=== PATIENT | male | born 1975 | race Caucasian/White ===

== ENCOUNTER 2019-02-03 11:30 | Observation (INO) | payer OTHER, SELFPAY ==
[2019-01-05 13:58] VITALS: BMI 30.9
--- NOTE | 2019-02-02 23:10 | HP.PCM_ITS ---
History and Physical Date of Admission: 02/03/19 HISTORY OF PRESENT ILLNESS 43 year old man presents for evaluation of hidradenitis with a recent flare-up in his right axilla. He had an I&D procedure in the office and was placed on Bactrim, and it has improved. He has had hidradenitis for several years. It mostly affects his right axilla and right inguinal area. At the present time he states his right axilla hurts more than his right inguinal area. He denies fever. He denies trauma. 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 He presents at this time for further evaluation and treatment. PAST MEDICAL HISTORY Kidney disease Recurrent infections Vitamin deficiency High blood pressure PAST SURGICAL HISTORY None ALLERGIES No Known Allergies MEDICATIONS aspirin clonidine doxazosin ergocalciferol (vitamin D2) famotidine hydralazine metoprolol tartrate potassium chloride ER simvastatin sulfamethoxazole 800 mg-trimethoprim 160 mg FAMILY HISTORY Mother - Diabetes, Breast cancer, Hypertension, Kidney disease Father - Heart disease, Hypertension, Respiratory disease SOCIAL HISTORY Smoking Status: Current every day smoker alcohol intake: current substance use type: marijuana REVIEW OF SYSTEMS General - Denies fever, fatigue, and weight loss. Eyes - Denies cataracts and glaucoma. ENT - Denies nasal congestion and sore throat. Endocrine - Denies excessive thirst and urination. Skin - Denies skin cancer. Has recent flare up of hidradenitis in his right axillary area. Has hidradenitis right inguinal area that is stable at this time. Musculoskeletal - Denies joint pain, joint stiffness, weakness of muscles and joints, back pain, and arthritis. Neuro - Denies headaches. Cardiovascular - Has chest pain. Denies fatigue, and shortness of breath with exertion. Psych - Denies anxiety and depression. Respiratory - Denies chronic cough and shortness of breath. Has sleep apnea. Patient is a smoker. Gastrointestinal - Denies nausea, vomiting, diarrhea. Has constipation. Hematologic - Denies abnormal bruising and bleeding. Genitourinary - Denies hematuria. Has urinary frequency. PHYSICAL EXAMINATION General - Alert and Oriented. HEENT - PERRL. EOMI. Throat is clear. Neck - Supple and nontender. No cervical adenopathy. Lungs - Clear to auscultation. Heart - Regular rate and rhythm. Abdomen - Soft and nondistended. Extremities - FROM. No axillary adenopathy. Radial pulses are palpable. In the right axillary area is hidradenitis with induration, redness, and tenderness. No fluctuance. No purulent drainage. Measures 5 cm. In the right inguinal area is hidradenitis with mild induration and no redness. Mild tenderness to palpation. No fluctuance. No purulent drainage. Measures 5 cm. Neuro - CN II-XII grossly intact. Psych - Normal mood and affect. ASSESSMENT 1. Right axillary hidradenitis. 2. Right inguinal hidradenitis, stable. 3. Smoker. PLAN Recommend operative intervention with excision of his hidradenitis. The right axilla is more symptomatic at this time and will be excised first. Tissue from surgery will be sent to Pathology for analysis to rule out carcinoma and to Microbiology for culture. A positive culture will necessitate antibiotic therapy. Will leave the wound open initially and start wound care with Silver or with the VAC. Usually in 4-6 weeks, the wound is superficial enough to heal a skin graft. Discussed with the patient about leaving the wound open and proceeding with wound closure in a delayed fashion with a skin graft. For this surgery, it will be under general anesthesia with a surgical observation overnight stay in the hospital. There will be a compression dressing or device to keep the graft stable during the healing process. Tentatively, I estimate him being off work for 2 months. Continue Bactrim antibiotics for his intermittent flare ups. Patient was informed of the risks and complications of the procedure including alternatives to surgery. These were discussed with the patient personally. Patient voices understanding and wishes to proceed. Some of the risks and complications were included in a form from the [employer]. Encouraged patient to stop smoking as it may have deleterious effects on wound healing.
[2019-02-03] VITALS (13 sets, daily range): BP systolic 109–156; BP diastolic 69–99; PULSE 50–67; RESP 16; TEMP 36.4–37.1; O2SAT 95–99; BMI 33.3
--- NOTE | 2019-02-03 | HID_PTH ---
PATIENT: BABAK ANDREWS LOC: [facility]3 U#:[id number] AGE/SX: 43/M ROOM: UT321 RE02/03/[address]: Dr. Chemo Barba MD : 1975 BED: 1 DIS: 02/04/2019 SPEC #: [id number] RECD: 02/03/19 14:45 STATUS: ASHWINI REQ #: [id number] COLEEN: 02/03/19 00:[address]: Chemo Barba DEPT: SURGICAL PATHOLOGY RECD BY: Eusebio Mclean ENTERED: 02/03/19 14:46 SP TYPE: Julian CHILEL DR: Dr. Carly Valderrama MD Tissues: Axilla, NOS Procedures: Surgery Specimen Level III HEADER OPERATION: Excision hidradenitis axilla PRE-OP DIAGNOSIS: Right axillary hidradenitis TISSUE SUBMITTED: Right axillary hidradenitis MICROSCOPIC DIAGNOSIS Skin and soft tissue of right axilla, excision: Consistent with hidradenitis. AM:ad 02/06/19 MICROSCOPIC DESCRIPTION Slides are reviewed. GROSS DESCRIPTION Received in fixative is one container labeled with the patient's name and designated right axillary hidradenitis. The specimen consists of an irregular fragment of pink-osullivan skin with attached yellow fatty tissue measuring 6.3 x 6 cm and depth of excision measuring 2 cm. Serial sections do not reveal mass lesions. The cut surfaces are yellow-reddish in color and consistent with hidradenitis. Real Estate Teacher sections are submitted in three cassettes. / AM:ad 02/03/19 TC:2 CPT: 82324
[2019-02-03] MEDS: Lactated Ringers 1,000 ML 100 ML IV (10:01)
[2019-02-03] MEDS: Cefazolin 2 GM in 0.9% Normal Saline 100 ML IV (10:39)
--- NOTE | 2019-02-03 11:24 | PCM.OPRPT ---
Report of Operation Date of Procedure: 02/03/19 Pre-Operative Diagnosis: 1. Right axillary hidradenitis. 2. Right inguinal hidradenitis, stable. 3. Smoker. Post-Operative Diagnosis: Same. Surgery/Procedure Performed:: Surgical preparation right axilla with excision hidradenitis (54 cm2). Description of Surgical Findings:: 43 year old man presents for evaluation of hidradenitis with a recent flare-up in his right axilla. He had an I&D procedure in the office and was placed on Bactrim, and it has improved. He has had hidradenitis for several years. It mostly affects his right axilla and right inguinal area. At the present time he states his right axilla hurts more than his right inguinal area. He denies fever. He denies trauma. 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 Patient was informed of the risks and complications of the procedure including alternatives to surgery. These were discussed with the patient personally. Patient voices understanding and wishes to proceed. Some of the risks and complications were included in a form from the [employer] Encouraged patient to stop smoking as it may have deleterious effects on wound healing. Size of defect right axilla - 9 x 6 x 3 cm. general utility machine operator: None Type of Anesthesia:: General Specimen's removed: Right axillary hidradenitis to Pathology and Microbiology. Drains: None. Estimated Blood Loss (mL): 50 ml. Description of Procedure: Patient was taken to OR in supine position and was placed under general anesthesia. The right axilla was prepped and draped in the usual fashion. SCD's were placed for DVT prophylaxis. Perioperative antibiotics were given intravenously. Using a scalpel, I proceeded with surgical preparation of the right axilla with excision of his hidradenitis. No purulent drainage was seen. In the subcutaneous tissue, there was extensive fat necrosis. There was indurated scar tissue extending down to the muscle that was excised. Some of the tissue was sent to Pathology for analysis to rule out carcinoma and to Microbiology for culture. A positive culture will necessitate antibiotic therapy. The wound was irrigated with saline. Hemostasis was obtained with electrocautery. The size of the defect right axilla after excision hidradenitis was 9 x 6 x 3 cm or 54 cm2. The wound was dressed with Mepitel nonadherent dressing followed by Kerlix gauze and Betadine followed by dry Kerlix gauze followed by ABD pads and compression CAT wrap. Patient tolerated the procedure well and was sent to PACU in satisfactory condition. Patient will be sent upstairs for continued postop care. The VAC will be applied tomorrow. Grafts/Implants Used: None. - Complications None. - Admit VTE Documentation VTE Present on Admission: No VTE Mechan Device Prophylaxis: SCD's VTE Pharm Prophylaxis ordered?: No Code Visit Surgery Charges CPT - 43337 ICD-10 - L73.2, S41.101A, F17.200
[2019-02-03] MEDS: Lactated Ringers 1,000 ML 60 ML IV (12:04)
[2019-02-03] MEDS: oxyCODONE 5 MG Tablet 10 MG PO ×2 (14:05→21:03)
[2019-02-03] MEDS: hydrALAZINE 50 MG Tablet 100 MG PO ×2 (14:06→21:04)
--- NOTE | 2019-02-03 14:15 | CASEMGMT ---
TOMMIE SUTHERLAND updated that patient will need HHC for wound vac dressing changes. TOMMIE SUTHERLAND in to discuss HHC with patient and provided list of in-network HHC agencies. Patient's first choice is [facility]. TOMMIE SUTHERLAND sent referral to [facility] and they are able to accept the patient. TOMMIE SUTHERLAND updated patient, who voiced understand and denied further needs or questions. TOMMIE SUTHERLAND updated wound nurse.
[2019-02-03] MEDS: cloNIDine HCl 0.2 MG Tablet 0.3 MG PO ×2 (14:57→21:05)
--- NOTE | 2019-02-03 15:22 | NURSING ---
Wound VAC approved. home VAC placed in the room. pt hoping to be discharged home tomorrow.
[2019-02-03] MEDS: Furosemide 40 MG Tablet 60 MG PO (17:35)
[2019-02-03] MEDS: Cefazolin 1 GM/50 ML BAG IV (18:20)
[2019-02-03] MEDS: Famotidine 20 MG Tablet PO (21:04)
[2019-02-03] MEDS: Atorvastatin Calcium 10 MG Tablet PO (21:05)
[2019-02-03] MEDS: Doxazosin 4 MG Tablet 8 MG PO (21:06)
[2019-02-03] MEDS: Metoprolol Tartrate 100 MG Tablet PO (21:06)
[2019-02-03] MEDS: Docusate Sodium 100 MG Capsule PO (21:06)
[2019-02-04] MEDS: cloNIDine HCl 0.2 MG Tablet 0.3 MG PO ×3 (01:48→13:39)
[2019-02-04] MEDS: Cefazolin 1 GM/50 ML BAG IV ×2 (01:48→11:00)
[2019-02-04 06:00] VITALS: BP 122/66; PULSE 65; RESP 16; TEMP 36.6; O2SAT 96
[2019-02-04 06:11] VITALS: PULSE 65
[2019-02-04] MEDS: Lactated Ringers 1,000 ML 60 ML IV (06:11)
[2019-02-04] MEDS: hydrALAZINE 50 MG Tablet 100 MG PO (06:11)
[2019-02-04 07:19] LABS: Hematocrit 41.6 % (40-54); Hemoglobin 13.4 g/dL (13.0-16.5); Mean Corp Hgb Conc 32.2 g/dL (32-36); Mean Corpuscular Hgb 31.6 pg (27.0-32.0); Mean Corpuscular Volume 98.1 fL (80-94); Mean Platelet Vol. 10.2 fl (6.2-12.0); Platelet Count 194 K/mm3 (150-450); RBC Distribution Width CV 13.7 % (11.6-14.6); RBC Distribution Width SD 49.5 fl (35.1-43.9); Red Blood Count 4.24 M/mm3 (4.6-6.2)
[2019-02-04 07:41] LABS: Anion Gap 8 (5-15); BUN 32 mg/dL (7-18); BUN/Creat Ratio 18.3 RATIO (10-20); Calcium,Total 8.5 mg/dL (8.5-10.1); Chloride 103 mmol/L (98-107); Creatinine, Serum 1.75 mg/dL (0.70-1.30); EST Glomerular Filtration Rate 45 mL/min (>60); Est Glom Filt Rate - Afr Amer 55 mL/min (>60); Estimated Creatinine Clearance 49.12 ml/min; Glucose 124 mg/dL (74-106); Potassium 3.7 mmol/L (3.5-5.1); Prealbumin 33.5 mg/dL (20.0-40.0); Sodium Level 139 mmol/L (136-145)
[2019-02-04 08:28] VITALS: BP 149/83; PULSE 62; RESP 16; TEMP 36.7; O2SAT 94
[2019-02-04 08:48] VITALS: PULSE 62
[2019-02-04] MEDS: Pantoprazole Sodium 20 MG Tablet PO (08:48)
[2019-02-04] MEDS: Allopurinol 100 MG Tablet PO (08:48)
[2019-02-04] MEDS: dilTIAZem CD 240 MG Capsule PO (08:48)
[2019-02-04] MEDS: Docusate Sodium 100 MG Capsule PO (08:48)
[2019-02-04] MEDS: Metoprolol Tartrate 100 MG Tablet PO (08:48)
[2019-02-04] MEDS: Famotidine 20 MG Tablet PO (08:48)
[2019-02-04] MEDS: Smz/Tmp Ds Tablet 1 TABLET PO (08:49)
[2019-02-04] MEDS: Furosemide 40 MG Tablet 60 MG PO (08:49)
[2019-02-04] MEDS: HYDROmorphone 1 MG/ML Syringe IV (10:56)
[2019-02-04] MEDS: 0.9% Saline Lock 10 ML Syringe IV (10:56)
[2019-02-04 13:31] VITALS: BP 124/67; PULSE 55; RESP 16; TEMP 36.7; O2SAT 96
[2019-02-04 13:40] VITALS: PULSE 55
--- NOTE | 2019-02-04 14:11 | PN.SURG_ITS ---
Subjective: Postop #1 Patient is resting comfortably. VAC applied today. VAC has been approved. - Physical Exam Vitals/I&O's: Vital Signs Temp Pulse Resp BP Pulse Ox 98.0 F 55 L 16 124/67 H 96 02/04/19 13:31 02/04/19 13:40 02/04/19 13:31 02/04/19 13:31 02/04/19 13:31 Oxygen Delivery Method Room Air Weight: 206 lb 2.115 oz Body Mass Index (BMI) 33.3 Intake and Output for Last 24 Hours 02/02/19 02/03/19 02/04/19 23:59 23:59 23:59 Intake Total 1936 / 2536 2724 / 2724 Output Total 600 / 600 Balance 1336 / 1936 2724 / 2724 General: Alert, Oriented x3 HEENT: PERRLA, EOMI Oral: Moist Mucosa Neck: Supple Abdomen: Soft, Non-Distended Skin: Ulcer/ Wound - right axillary wound stable. No active bleeding seen. VAC applied today. Neurological: Cranial nerves II-XII grossly intact Psych/Mental Status: Normal Affect, Appropriate Microbiology Past 72 Hours 02/03/19 Unknown Tissue - Other Gram Stain - Final 02/03/19 Unknown Tissue - Other Wound Culture - Preliminary No growth-Final to follow Laboratory Results 02/04/19 06:44: Sodium 139, Potassium 3.7, Chloride 103, Carbon Dioxide 28.0, Anion Gap 8, BUN 32 H, Creatinine 1.75 H, Estim Creat Clear Calc 49.12, Est GFR (MDRD) Af Amer 55 L, Est GFR (MDRD) Non-Af 45 L, BUN/Creatinine Ratio 18.3, Glucose 124 H, Calcium 8.5, Prealbumin 33.5 02/04/19 06:44: WBC 7.0, RBC 4.24 L, Hgb 13.4, Hct 41.6, MCV 98.1 H, MCH 31.6, MCHC 32.2, RDW Std Deviation 49.5 H, RDW Coeff of Kavitha 13.7, Plt Count 194, MPV 10.2 Current Medications [facility]) [facility] Last Admin: 02/04/19 08:48 Dose: 100 mg Documented by: Atorvastatin Calcium (Lipitor) 10 mg PO QHS ON LICENSE OF [facility] Last Admin: 02/03/19 21:05 Dose: 10 mg Documented by: Clonidine (Catapres) 0.3 mg PO 0200,0600,1400,2000 ON LICENSE OF [facility] Last Admin: 02/04/19 13:39 Dose: 0.3 mg Documented by: Diazepam (Valium) 5 mg PO 4X/DAY PRN PRN PRN Reason: SPASMS Diltiazem HCl (Cardizem Cd) 240 mg PO DAILY ON LICENSE OF [facility] Last Admin: 02/04/19 08:48 Dose: 240 mg Documented by: Docusate Sodium (Colace) 100 mg PO BID ON LICENSE OF [facility] Last Admin: 02/04/19 08:48 Dose: 100 mg Documented by: Doxazosin Mesylate (Cardura) 8 mg PO QHS ON LICENSE OF [facility] Last Admin: 02/03/19 21:06 Dose: 8 mg Documented by: Ergocalciferol (Vitamin D) 100,000 unit PO QWEEK ON LICENSE OF [facility] Famotidine (Pepcid) 20 mg PO BID ON LICENSE OF [facility] Last Admin: 02/04/19 08:48 Dose: 20 mg Documented by: Furosemide (Lasix) 60 mg PO 1000,1800 ON LICENSE OF [facility] Last Admin: 02/04/19 08:49 Dose: 60 mg Documented by: Hydralazine HCl (Apresoline) 100 mg PO TID ON LICENSE OF [facility] Last Admin: 02/04/19 13:40 Dose: Not Given Documented by: Hydromorphone HCl (Dilaudid Inj) 1 mg IV Q3H PRN PRN PRN Reason: Pain Score 6-10/10 Last Admin: 02/04/19 10:56 Dose: 1 mg Documented by: Cefazolin Sodium () 1 gm in 50 mls @ 100 mls/hr IV Q8H ON LICENSE OF [facility] Last Infusion: 02/04/19 11:30 Dose: Infused Documented by: Lactated Ringer's () 1,000 mls @ 60 mls/hr IV .[id number] ON LICENSE OF [facility] Last Infusion: 02/04/19 11:30 Dose: Infused Documented by: Metoprolol Tartrate (Lopressor (Beta Rodriguez)) 100 mg PO BID ON LICENSE OF [facility] Last Admin: 02/04/19 08:48 Dose: 100 mg Documented by: Nutritional Formula (Cullen - Wynona Flavor) 1 packet PO BIDCM ON LICENSE OF [facility] Last Admin: 02/04/19 08:49 Dose: 1 packet Documented by: Ondansetron HCl (Zofran) 4 mg IV Q6H PRN PRN PRN Reason: NAUSEA Oxycodone HCl (Oxyir) 10 mg PO Q4H PRN PRN PRN Reason: Pain Score 6-10/10 Last Admin: 02/03/19 21:03 Dose: 5 mg Documented by: Pantoprazole Sodium (Protonix) 20 mg PO DAILY ON LICENSE OF [facility] Last Admin: 02/04/19 08:48 Dose: 20 mg Documented by: Potassium Chloride (K-Dur) [facility] Last Admin: 02/04/19 08:48 Dose: 10 meq Documented by: Promethazine HCl (Phenergan Tablet) 25 mg PO Q4H PRN PRN PRN Reason: NAUSEA/VOMITING Sodium Chloride () 10 - 40 ml IV UD PRN PRN Reason: SALINE FLUSH Last Admin: 02/04/19 10:56 Dose: 10 ml Documented by: Trimethoprim/Sulfamethoxazole (Bactrim Ds) 1 tablet [facility] Last Admin: 02/04/19 08:49 Dose: 1 tablet Documented by: Medical Necessity - Tobacco Use Smoking Status: Current every day smoker Tobacco Use: Cigarettes Assessment/Plan 1. Right axillary hidradenitis. 2. Right inguinal hidradenitis, stable. 3. Smoker. 4. s/p surgical preparation right axilla with excision hidradenitis (54 cm2). 5. Chronic kidney disease. Right axillary wound is stable. No active bleeding seen. VAC applied today. To be changed three times per week at 150 mmHg continuous suction. Home Health to assist. VAC has been approved. Tolerating po analgesia. Operative culture is negative thus far. Will send home on Doxycycline. A positive culture will necessitate antibiotic therapy. Prealbumin was 33.5. Encourage nutritional supplementation with protein to help the healing process. Creatinine is 1.75. Patient has chronic kidney disease. He states he recently saw his Physical Sciences Professor about a month ago. I instructed him to call their office next week to update them on the labs from this surgery. Will also repeat the BMP in a week. Discharge home today. Followup at [facility] Center on Wednesday02/13/19. Wrote script for Doxycycline. Wrote script for Phenergan for nausea (30 tabs) and a refill. Wrote scripts for Percocet for pain (40 tabs) and for Valium for spasm (30 tabs). Encouraged patient to stop smoking as it may have deleterious effects on wound healing.
--- NOTE | 2019-02-04 14:18 | DCINST_ITS ---
You will use the following diet at home:: No restrictions, Other - encourage nutritional supplementation with protein to help the healing process. Discharge Activity: May not drive while taking narcotic pain medications., May Shower - on the days the vac is changed., - - no heavy lifting. keep right arm elevated. May shower in (days): 2 - may shower on the days the vac is changed. May resume sexual activity in: No Restrictions Weight Bearing Status: Weight bearing as tolerated Lifting Restrictions: 20 lbs. Keep extremity elevated above heart level: Right Arm Call your doctor if your incision/area has: Continuous Slow Oozing, Sudden Increased Bleeding, Increased Pain/ Swelling, Increased Redness, Foul Smelling Discharge, Swelling at the incision site Call your doctor if you observe: Fever of 101 or Higher, Coldness, Increased Pain, Shortness of breath, Chest pain, Calf discomfort, Uncontrolled pain Suture Line Care: - - vac dressing changes three times per week at 150 mmHg continuous suction. Change Dressing in (Days):: 2 - vac changes three times per week. Cleanse incision/area with: Soap & Water - may cleanse the wound on the days the vac is changed., - - may shower on the days the vac is changed. Additional Dressing/Incision Instructions:: Home Health to assist with vac changes three times per week at 150 mmHg continuous suction. May cleanse the wound with soap and water at the time of the vac dressing change. Additional Instructions: Patient had a Creatinine of 1.75 in the hospital. He states he sees a Materials Assistant. Instructed him to call their office on 02/06/19, and give them the results of the Creatinine from this hospitalization. Allergies/Adverse Reactions: Allergies No Known Allergies Allergy (Verified 01/27/19 11:15) Medications to take at Discharge aspirin 81 mg tablet,delayed release 81 mg PO DAILY 01/05/19 clonidine HCl 0.3 mg tablet 0.3 mg PO Q6H tab 01/05/19 doxazosin 8 mg tablet 8 mg PO DAILY 01/05/19 ergocalciferol (vitamin D2) 50,000 unit capsule 100,000 unit PO QWEEK cap 01/05/19 famotidine 20 mg tablet 20 mg PO BID 01/05/19 hydralazine 100 mg tablet 100 mg PO TID tab 01/05/19 metoprolol tartrate 100 mg tablet 100 mg PO BID 01/05/19 potassium chloride ER 10 mEq tablet,extended release 10 meq PO DAILY 01/05/19 simvastatin 20 mg tablet 20 mg PO QHS 01/05/19 sulfamethoxazole 800 mg-trimethoprim 160 mg tablet 1 tab PO DAILY tab 01/05/19 Allopurinol [Zyloprim] 100 mg PO DAILYCM 01/27/19 Diltiazem HCl [Diltiazem 24Hr ER (Cd)] 240 mg PO DAILY 01/27/19 Docusate Sodium [Colace] 100 mg PO DAILY 01/27/19 Furosemide [Lasix] 60 mg PO BID 01/27/19 Omeprazole [Prilosec] 20 mg PO DAILY 01/27/19 Diazepam [Valium] 5 mg PO 4X/DAY PRN PRN #30 tab 02/04/19 Doxycycline [Vibramycin] 100 mg PO BID #60 cap 02/04/19 Oxycodone HCl/Acetaminophen [Percocet 5/325] 1 tab PO Q4H PRN PRN 7 Days #40 tab 02/04/19 proMETHazine tablet [Phenergan tablet] 25 mg PO 4X/DAY PRN PRN #30 tab 02/04/19 The following prescriptions were given: Oxycodone HCl/Acetaminophen [Percocet 5/325] 1 tab PO Q4H PRN PRN 7 Days #40 tab PRN Reason: Pain Score 4-5/10 Prescription Printed proMETHazine tablet [Phenergan tablet] 25 mg PO 4X/DAY PRN PRN #30 tab PRN Reason: Nausea/Vomiting Prescription Printed Diazepam [Valium] 5 mg PO 4X/DAY PRN PRN #30 tab PRN Reason: Spasms Prescription Printed Doxycycline [Vibramycin] 100 mg PO BID #60 cap Prescription Printed Orders to be completed after discharge: Basic Metabolic Profile (BMP) Time Frame: 1 Week, Facility: [facility], Location: [facility] Primary Care Physician: Carly Valderrama [Primary Care Provider] - Test Results: Test results from this visit will be discussed in further detail at your follow- up appointment, if applicable. Please Follow Up With: Chemo Barba MD When: wednesday02/13/[address] [facility]. call [phone] for appt. Proposed Discharge Date: 02/04/19
== END 2019-02-04 14:55 | disposition home health service (06) ==
LOC: SDC 12:51 → MS3 12:51
PROVIDERS: Admitting Provider Surgery; Family Provider Internal Medicine; PCP Internal Medicine; Referring Provider Surgery; Visit Provider Surgery
PROC: (CPT 15002; principal; 2019-02-03 10:25)
DX: L73.2 Hidradenitis suppurativa (principal); I12.9 Hypertensive chronic kidney disease with stage 1 through stage 4 chronic kidney disease, or unspecified chronic kidney disease; Z79.899 Other long term (current) drug therapy; Z79.82 Long term (current) use of aspirin; F17.210 Nicotine dependence, cigarettes, uncomplicated; N18.2 Chronic kidney disease, stage 2 (mild)
CPT/HCPCS: 00400; 15002; 36415; 80048; 84134; 85027; 87070; 87075; 87076; 87077; 87102; 87176; 87186; 87205; 87206; 88304; 94762; 96365; 96366; 96375; 99218; 99251; J7120; A4216; G0378; G0379; G0463

== ENCOUNTER 2019-02-13 08:35 | Outpatient (RCR) | payer OTHER, SELFPAY ==
[2019-02-03 13:36] VITALS: BMI 33.3
[2019-02-13 08:45] VITALS: BP 129/80; PULSE 67; RESP 18; TEMP 37.4; BMI 33.2
--- NOTE | 2019-02-13 23:05 | PCM.WC.PN ---
Type of Wound Date of Service: 02/13/19 Chief Complaint: Open surgical hidradenitis wound right axilla. History of Wound: Surgery 02/03/19 - Surgical preparation right axilla with excision hidradenitis (54 cm2). Wound Care - VAC. Operative culture - Enterococcus faecalis and Anaerobic cocci. He was treated perioperatively with Doxycycline and it was changed to Augmentin. Prealbumin from 02/04/19 was 33.5. Encourage nutritional supplementation with protein to help the healing process. Today he denies fever. His appetite is good. He has good range of motion right shoulder. Progress of Wound: Improved. - Physical Exam Vital Signs Temp Pulse Resp BP 99.3 F H 67 18 129/80 H 02/13/19 08:45 02/13/19 08:45 02/13/19 08:45 02/13/19 08:45 General: Alert, Oriented x3 HEENT: PERRLA, EOMI Oral: Moist Mucosa Neck: Supple Abdomen: Soft, Non-Distended Skin: Ulcer/ Wound - right axillary wound stable. No active bleeding seen. VAC reapplied today. Wound Measurements and Assessment WC - Nurse 1 - General Ulcer Measurement Start: 02/13/19 08:19 Freq: Status: Active Protocol: Activity Type Activity Date Activity User E-Sign Co-Sign Detail Recorded Client Recorded Date Recorded By Document 02/13/19 08:45 [id number] 02/13/19 09:06 DL 02/13/19 08:45 Wound Center Nurse 1 [Ulcer Assessment] #1 R Axilla -Current Size (cm) - Length 3.8 -Current Size (cm) - Width 6.8 -Current Size (cm) - Depth 2.6 -Total Square Cm 25.84 -Photo Taken Yes -Classification - Thickness Full Thickness without Exposed Support Structure -Exudate Amt Medium -Exudate Type Serosanguineous -Wound Margin Distinct, Outline Attached -Granulation Amt Large (67-100%) -Granulation Quality Red -Necrosis Amt Small (1-33%) -Necrotic Tissue Type Adherent Slough -Structure Exposed N/A -Texture (Ramona-wound Skin Appearance) Scarring -Moisture (Ramona-wound Skin Appearance No Abnormality ) -Color (Ramona-wound Skin Appearance) No Abnormality -Temperature (Ramona-wound Skin No Abnormality Appearance) (Pt Warm) -Tenderness on Palpation (Ramona-wound No Skin Appearance) -Ulcer Cleansing Wound Cleanser -Foul Odor after Cleansing No -Anesthetic Used 4% Lidocaine Solution WC - Nurse 2 - General Ulcer CM Notes Start: 02/13/19 08:19 Freq: Status: Active Protocol: Activity Type Activity Date Activity User E-Sign Co-Sign Detail Recorded Client Recorded Date Recorded By Document 02/13/19 09:30 [id number] 02/13/19 09:30 02/13/19 09:30 Wound Center Nurse 2 [Procedure/Treatment] -Correct Patient No -Correct Side, Site, Position No -Correct Procedure No -Procedure Performed No -Bleeding Controlled with Pressure [See Physician Procedure note for Specifics] Pain Scale: 0-10 Numeric [Pain] -Is Patient Pain Free? Yes Neurological: Cranial nerves II-XII grossly intact Psych/Mental Status: Normal Affect, Appropriate Debridement Note Post-Debridement Measurements/Treatment WC - Nurse 2 - General Ulcer CM Notes Start: 02/13/19 08:19 Freq: Status: Active Protocol: Activity Type Activity Date Activity User E-Sign Co-Sign Detail Recorded Client Recorded Date Recorded By Document 02/13/19 09:30 [id number] 02/13/19 09:30 02/13/19 09:30 Wound Center Nurse 2 #1 R Axilla -Correct Patient No -Correct Side, Site, Position No -Correct Procedure No -Procedure Performed No -Bleeding Controlled with Pressure Pain Scale: 0-10 Numeric Is Patient Pain Free? Yes Wound debrided: #1 Right axilla. Laterality: Right Wound Grade/Stage: 2. No debridement was completed today - The patient had recent surgery on 02/03/19. Assessment/Plan Assessment: 1. Right axillary hidradenitis. 2. Open surgical hidradenitis wound right axilla. 3. Smoker. 4. s/p surgical preparation right axilla with excision hidradenitis (54 cm2). Plan: Continue the VAC to the right axilla. Encourage range of motion exercises right axilla to minimize stiffness. Continue Augmentin for operative cultures that showed Enterococcus faecalis and Anaerobic cocci. Prealbumin from 02/04/19 was 33.5. Encourage nutritional supplementation with protein to help the healing process. Renewed his Percocet for pain (30 tabs). Renewed his Valium for spasm (30 tabs). Followup 2 weeks. Code Visit Wound Center Charges CPT - 74130 ICD-10 - V58.49, L73.2, S41.101A, F17.200
== END 2019-02-25 23:59 ==
LOC: WC 08:35
PROVIDERS: Family Provider Internal Medicine; PCP Internal Medicine; Visit Provider Surgery
DX: L73.2 Hidradenitis suppurativa (principal); F17.200 Nicotine dependence, unspecified, uncomplicated
CPT/HCPCS: 97605; 99213; G0463

== ENCOUNTER 2019-03-13 08:00 | Outpatient (RCR) | payer OTHER, SELFPAY ==
[2019-02-26 01:18] VITALS: BP 129/80; PULSE 67; RESP 18; TEMP 37.4
[2019-02-27 08:15] VITALS: BP 157/109; PULSE 62; RESP 18; TEMP 36.6; BMI 33.2
--- NOTE | 2019-02-27 13:31 | PN.PCM_ITS ---
(1) Open wound of right axillary region Status: Acute Code(s): S41.101A - Unspecified open wound of right upper arm, initial encounter (2) Right axillary hidradenitis Status: Chronic Code(s): L73.2 - Hidradenitis suppurativa (3) Smoker Status: Chronic Code(s): F17.200 - Nicotine dependence, unspecified, uncomplicated Type of Wound Date of Service: 02/27/19 Chief Complaint: Open surgical hidradenitis wound right axilla. History of Wound: Surgery 02/03/19 - Surgical preparation right axilla with excision hidradenitis (54 cm2). Wound Care - VAC. Removed sutures from the small area below the surgical area. Incision dry and intact. Operative culture - Enterococcus faecalis and Anaerobic cocci. He was treated perioperatively with Doxycycline and it was changed to Augmentin. Prealbumin from 02/04/19 was 33.5. Encourage nutritional supplementation with protein to help the healing p rocess. Today he denies fever. His appetite is good. He has good range of motion right shoulder. Progress of Wound: Improved. - Physical Exam Vital Signs Temp Pulse Resp BP 97.8 F 62 18 157/109 H 02/27/19 08:15 02/27/19 08:15 02/27/19 08:15 02/27/19 08:15 General: Alert, Oriented x3, Cooperative HEENT: Atraumatic Oral: Moist Mucosa Lungs: Normal air movement Cardiovascular: Regular rate Extremities: No edema, Capillary Refill Less than 3 Seconds Skin: Ulcer/ Wound - Right axilla ulcer Wound Measurements and Assessment WC - Nurse 1 - General Ulcer Measurement Start: 02/27/19 08:14 Freq: Status: Active Protocol: Activity Type Activity Date Activity User E-Sign Co-Sign Detail Recorded Client Recorded Date Recorded By Document 02/27/19 08:15 DL [id number] 02/27/19 08:20 DL 02/27/19 08:15 Wound Center Nurse 1 [Ulcer Assessment] #1 R Axilla -Current Size (cm) - Length 1.4 -Current Size (cm) - Width 5 -Current Size (cm) - Depth 0.2 -Total Square Cm 7.0 -Photo Taken No -Exudate Amt Small -Exudate Type Serosanguineous -Wound Margin Distinct, Outline Attached -Granulation Amt Large (67-100%) -Granulation Quality Red -Necrosis Amt None Present (0 %) -Structure Exposed N/A -Texture (Ramona-wound Skin Appearance) Scarring -Moisture (Ramona-wound Skin Appearance No Abnormality ) -Color (Ramona-wound Skin Appearance) No Abnormality -Temperature (Ramona-wound Skin No Abnormality Appearance) (Pt Warm) -Tenderness on Palpation (Ramona-wound No Skin Appearance) -Ulcer Cleansing Wound Cleanser -Foul Odor after Cleansing No -Anesthetic Used 4% Lidocaine Solution - Nurse 2 - General Ulcer CM Notes Start: 02/27/19 08:14 Freq: Status: Active Protocol: Activity Type Activity Date Activity User E-Sign Co-Sign Detail Recorded Client Recorded Date Recorded By Document 02/27/19 08:39 [id number] 02/27/19 08:41 02/27/19 08:39 Wound Center Nurse 2 [Procedure/Treatment] -Time 08:40 -Correct Patient Yes -Correct Side, Site, Position Yes -Correct Procedure Yes -Procedure Performed Yes -Type of Procedure Debridement -Clinical Debridement Subcutaneous -Post Debridement Size (cm) - Length 1.5 -Post Debridement Size (cm) - Width 6 -Post Debridement Size (cm) - Depth 0.5 -Total Square Cm 9.0 -Wound/Ulcer Outcome Not Healed -Ulcer Cleansing Rinsed/ Irrigated with Saline -Foul Odor after Cleansing No -Bioengineered Tissue No -Bleeding Controlled with Pressure -Offloading No -Treatment Response Procedure Tolerated Well [See Physician Procedure note for Specifics] Pain Scale: 0-10 Numeric [Pain] -Is Patient Pain Free? Yes Musculoskeletal: No Muscle Wasting Neurological: Neuro grossly intact Psych/Mental Status: Normal Affect, Appropriate Debridement Note Post-Debridement Measurements/Treatment - Nurse 2 - General Ulcer CM Notes Start: 02/27/19 08:14 Freq: Status: Active Protocol: Activity Type Activity Date Activity User E-Sign Co-Sign Detail Recorded Client Recorded Date Recorded By Document 02/27/19 08:39 [id number] 02/27/19 08:41 02/27/19 08:39 Wound Center Nurse 2 #1 R Axilla -Time 08:40 -Correct Patient Yes -Correct Side, Site, Position Yes -Correct Procedure Yes -Procedure Performed Yes -Type of Procedure Debridement -Clinical Debridement Subcutaneous -Post Debridement Size (cm) - Length 1.5 -Post Debridement Size (cm) - Width 6 -Post Debridement Size (cm) - Depth 0.5 -Total Square Cm 9.0 -Wound/Ulcer Outcome Not Healed -Ulcer Cleansing Rinsed/ Irrigated with Saline -Foul Odor after Cleansing No -Bioengineered Tissue No -Bleeding Controlled with Pressure -Offloading No -Treatment Response Procedure Tolerated Well Pain Scale: 0-10 Numeric Is Patient Pain Free? Yes Wound debrided: axilla ulcer Laterality: Right Type of Debridement: Excisional debridement Anesthesia Used: 5% Lidocaine Gel Depth: Down to and including healthy tissue, in the subcutaneous layer Percentage of wound debrided: 100 Instrument Used: 7mm curette Tissue Removed: subcutaneous tissue and slough Severity: Fat Layer Exposed Amount of bleeding with debridement: Mild Bleeding Controlled with: Pressure Patient tolerated procedure well Assessment/Plan Assessment: 1. Right axillary hidradenitis. 2. Open surgical hidradenitis wound right axilla. 3. Smoker. 4. s/p surgical preparation right axilla with excision hidradenitis (54 cm2). Plan: Continue the VAC to the right axilla. Encourage range of motion exercises right axilla to minimize stiffness. Continue Augmentin for operative cultures that showed Enterococcus faecalis and Anaerobic cocci. Prealbumin from 02/04/19 was 33.5. Encourage nutritional supplementation with protein to help the healing process. Renewed his Percocet for pain (20 tabs). He has stopped smoking over the past week. He states he was smoking 1.5-2 packs per day and now he has had one cigarette every couple days. Code Visit 111xxx-113xx: [id number] Mayelin subq tissue 20 sq cm/<
[2019-03-06 08:24] VITALS: BP 124/79; PULSE 61; RESP 16; TEMP 36.9; BMI 33.2
--- NOTE | 2019-03-06 14:36 | PCM.WC.PN ---
(1) Open wound of right axillary region Status: Acute Code(s): S41.101A - Unspecified open wound of right upper arm, initial encounter (2) Right axillary hidradenitis Status: Chronic Code(s): L73.2 - Hidradenitis suppurativa (3) Smoker Status: Chronic Code(s): F17.200 - Nicotine dependence, unspecified, uncomplicated Type of Wound Date of Service: 03/06/19 Chief Complaint: Open surgical hidradenitis wound right axilla. History of Wound: Surgery 02/03/19 - Surgical preparation right axilla with excision hidradenitis (54 cm2). Wound Care - Wound VAC holiday. Will do daily silver dressing changes. Operative culture - Enterococcus faecalis and Anaerobic cocci. He was treated perioperatively with Doxycycline and it was changed to Augmentin. Prealbumin from 02/04/19 was 33.5. Encourage nutritional supplementation with protein to help the healing process. Today he denies fever. His appetite is good. He has good range of motion right shoulder. Progress of Wound: Improved. - Physical Exam Vital Signs Temp Pulse Resp BP 98.4 F 61 16 124/79 H 03/06/19 08:24 03/06/19 08:24 03/06/19 08:24 03/06/19 08:24 General: Alert, Oriented x3, Cooperative HEENT: Atraumatic Oral: Moist Mucosa Lungs: Normal air movement Cardiovascular: Regular rate Extremities: Capillary Refill Less than 3 Seconds Skin: Ulcer/ Wound - right axilla wound Wound Measurements and Assessment WC - Nurse 1 - General Ulcer Measurement Start: 02/27/19 08:14 Freq: Status: Active Protocol: Activity Type Activity Date Activity User E-Sign Co-Sign Detail Recorded Client Recorded Date Recorded By Document 03/06/19 08:24 MW [id number] 03/06/19 08:26 MW 03/06/19 08:24 Wound Center Nurse 1 [Ulcer Assessment] #1 R Axilla -Combined with other wound No -Current Size (cm) - Length 1.0 -Current Size (cm) - Width 4.3 -Current Size (cm) - Depth 0.1 -Total Square Cm 4.30 -Photo Taken No -Epithelialization Small 1-33% -Tunneling No -Undermining/Tunneling No -Circular Undermining No -Exudate Amt Medium -Exudate Type Serosanguineous -Wound Margin Flat & Intact -Granulation Amt Large (67-100%) -Granulation Quality Red -Slough/Fibrin Yes -Necrosis Amt Small (1-33%) -Necrotic Tissue Type Adherent Slough -Structure Exposed N/A -Texture (Ramona-wound Skin Appearance) Assessed, Scarring -Moisture (Ramona-wound Skin Appearance No Abnormality, ) Assessed -Color (Ramona-wound Skin Appearance) No Abnormality, Assessed -Temperature (Ramona-wound Skin No Abnormality Appearance) (Pt Warm) -Tenderness on Palpation (Ramona-wound No Skin Appearance) -Ulcer Cleansing soap and water -Foul Odor after Cleansing No -Anesthetic Used 5% Lidocaine Gel [Edema Assessment] -Lower Limb Edema Present No WC - Nurse 2 - General Ulcer CM Notes Start: 02/27/19 08:14 Freq: Status: Active Protocol: Activity Type Activity Date Activity User E-Sign Co-Sign Detail Recorded Client Recorded Date Recorded By Document 03/06/19 08:47 [id number] 03/06/19 08:47 03/06/19 08:47 Wound Center Nurse 2 [Procedure/Treatment] #1 R Axilla -Time 08:47 -Correct Patient Yes -Correct Side, Site, Position Yes -Correct Procedure Yes -Procedure Performed Yes -Type of Procedure Debridement -Clinical Debridement Subcutaneous -Post Debridement Size (cm) - Length 1.0 -Post Debridement Size (cm) - Width 4.0 -Post Debridement Size (cm) - Depth 0.1 -Total Square Cm 4.00 -Wound/Ulcer Outcome Not Healed -Ulcer Cleansing Rinsed/ Irrigated with Saline -Foul Odor after Cleansing No -Bioengineered Tissue No -Bleeding Controlled with Pressure -Offloading No -Treatment Response Procedure Tolerated Well [See Physician Procedure note for Specifics] Pain Scale: 0-10 Numeric [Pain] -Is Patient Pain Free? Yes Musculoskeletal: No Muscle Wasting Neurological: Neuro grossly intact Psych/Mental Status: Normal Affect, Appropriate Debridement Note Post-Debridement Measurements/Treatment - Nurse 2 - General Ulcer CM Notes Start: 02/27/19 08:14 Freq: Status: Active Protocol: Activity Type Activity Date Activity User E-Sign Co-Sign Detail Recorded Client Recorded Date Recorded By Document 02/27/19 08:39 [id number] 02/27/19 08:41 Document 03/06/19 08:47 [id number] 03/06/19 08:47 02/27/19 03/06/19 08:39 08:47 Wound Center Nurse 2 #1 R Axilla -Time 08:40 08:47 -Correct Patient Yes Yes -Correct Side, Site, Position Yes Yes -Correct Procedure Yes Yes -Procedure Performed Yes Yes -Type of Procedure Debridement Debridement -Clinical Debridement Subcutaneous Subcutaneous -Post Debridement Size (cm) - Length 1.5 1.0 -Post Debridement Size (cm) - Width 6 4.0 -Post Debridement Size (cm) - Depth 0.5 0.1 -Total Square Cm 9.0 4.00 -Wound/Ulcer Outcome Not Healed Not Healed -Ulcer Cleansing Rinsed/ Rinsed/ Irrigated with Irrigated with Saline Saline -Foul Odor after Cleansing No No -Bioengineered Tissue No No -Bleeding Controlled with Pressure Pressure -Offloading No No -Treatment Response Procedure Procedure Tolerated Well Tolerated Well Pain Scale: 0-10 Numeric Is Patient Pain Free? Yes Yes Wound debrided: axilla wound Laterality: Right Type of Debridement: Excisional debridement Anesthesia Used: 5% Lidocaine Gel Depth: Down to and including healthy tissue, in the subcutaneous layer Percentage of wound debrided: 100 Instrument Used: 5mm curette Tissue Removed: subcutaneous tissue and slough Severity: Fat Layer Exposed Amount of bleeding with debridement: Mild Bleeding Controlled with: Pressure Patient tolerated procedure well Assessment/Plan Assessment: 1. Right axillary hidradenitis. 2. Open surgical hidradenitis wound right axilla. 3. Smoker. 4. s/p surgical preparation right axilla with excision hidradenitis (54 cm2). Plan: VAC holiday. Start daily silver dressing changes to the right axilla. Encourage range of motion exercises right axilla to minimize stiffness. Continue Augmentin for operative cultures that showed Enterococcus faecalis and Anaerobic cocci. Prealbumin from 02/04/19 was 33.5. Encourage nutritional supplementation with protein to help the healing process. Renewed his Percocet for pain (10 tabs). [employer] website down. He has stopped smoking over the past week. He states he was smoking 1.5-2 packs per day and now he has had one cigarette every couple days. Code Visit 111xxx-113xx: [id number] Mayelin subq tissue 20 sq cm/<
[2019-03-13 08:22] VITALS: BP 147/101; PULSE 69; RESP 18; TEMP 36.4; BMI 33.2
--- NOTE | 2019-03-13 09:30 | WC ---
BP recheck 162/115 . pt encouraged to go to PCP or ER to have blood pressure rechecked . pt states I wont go to ER but I might go to my PCP Dr Carney in [facility] . pt states I will recheck my blood pressure when I get home. pt states I think my blood pressure is up because I only slept one hour last night
--- NOTE | 2019-03-13 18:04 | PCM.WC.PN ---
Type of Wound Date of Service: 03/13/19 Chief Complaint: Nonhealing hidradenitis ulcer right axilla. History of Wound: Surgery 02/03/19 - Surgical preparation right axilla with excision hidradenitis (54 cm2). Wound Care - Silver. Operative culture - Enterococcus faecalis and Anaerobic cocci. He was treated perioperatively with Doxycycline and it was changed to Augmentin. Prealbumin from 02/04/19 was 33.5. Encourage nutritional supplementation with protein to help the healing process. Today he denies fever. His appetite is good. He has good range of motion right shoulder. Progress of Wound: Improved. - Physical Exam Vital Signs Temp Pulse Resp BP 97.6 F L 69 18 147/101 H 03/13/19 08:22 03/13/19 08:22 03/13/19 08:22 03/13/19 08:22 Wound Measurements and Assessment WC - Nurse 1 - General Ulcer Measurement Start: 02/27/19 08:14 Freq: Status: Active Protocol: Activity Type Activity Date Activity User E-Sign Co-Sign Detail Recorded Client Recorded Date Recorded By Document 03/13/19 08:22 DV [id number] 03/13/19 08:29 DV 03/13/19 08:22 Wound Center Nurse 1 [Ulcer Assessment] #1 R Axilla -Combined with other wound No -Current Size (cm) - Length 0.9 -Current Size (cm) - Width 3.5 -Current Size (cm) - Depth 0.1 -Total Square Cm 3.15 -Photo Taken No -Epithelialization Small 1-33% -Tunneling No -Undermining/Tunneling No -Circular Undermining No -Classification - Thickness Full Thickness without Exposed Support Structure -Exudate Amt Medium -Exudate Type Serous -Wound Margin Flat & Intact -Granulation Amt Medium (34-66%) -Slough/Fibrin Yes -Necrosis Amt Medium (34-66%) -Necrotic Tissue Type Adherent Slough -Structure Exposed N/A -Texture (Ramona-wound Skin Appearance) Assessed, Scarring -Moisture (Ramona-wound Skin Appearance Assessed, ) Weeping -Color (Ramona-wound Skin Appearance) Assessed, Erythema -Temperature (Ramona-wound Skin No Abnormality Appearance) (Pt Warm) -Tenderness on Palpation (Ramona-wound Yes Skin Appearance) -Ulcer Cleansing Rinsed/ Irrigated with Saline -Foul Odor after Cleansing No -Anesthetic Used 4% Lidocaine Solution - Nurse 2 - General Ulcer CM Notes Start: 02/27/19 08:14 Freq: Status: Active Protocol: Activity Type Activity Date Activity User E-Sign Co-Sign Detail Recorded Client Recorded Date Recorded By Document 03/13/19 09:06 [id number] 03/13/19 09:07 03/13/19 09:06 Wound Center Nurse 2 [Procedure/Treatment] -Time 09:07 -Correct Patient Yes -Correct Side, Site, Position Yes -Correct Procedure Yes -Procedure Performed Yes -Type of Procedure Debridement -Clinical Debridement Subcutaneous -Post Debridement Size (cm) - Length 1.0 -Post Debridement Size (cm) - Width 3.7 -Post Debridement Size (cm) - Depth 0.1 -Total Square Cm 3.70 -Wound/Ulcer Outcome Not Healed -Ulcer Cleansing Rinsed/ Irrigated with Saline -Foul Odor after Cleansing No -Bioengineered Tissue No -Bleeding Controlled with Pressure -Offloading No -Treatment Response Procedure Tolerated Well [See Physician Procedure note for Specifics] Pain Scale: 0-10 Numeric [Pain] -Is Patient Pain Free? Yes Debridement Note Post-Debridement Measurements/Treatment - Nurse 2 - General Ulcer CM Notes Start: 02/27/19 08:14 Freq: Status: Active Protocol: Activity Type Activity Date Activity User E-Sign Co-Sign Detail Recorded Client Recorded Date Recorded By Document 02/27/19 08:39 [id number] 02/27/19 08:41 Document 03/06/19 08:47 [id number] 03/06/19 08:47 Document 03/13/19 09:06 [id number] 03/13/19 09:07 02/27/19 03/06/19 03/13/19 08:39 08:47 09:06 Wound Center Nurse 2 #1 R Axilla -Time 08:40 08:47 09:07 -Correct Patient Yes Yes Yes -Correct Side, Site, Position Yes Yes Yes -Correct Procedure Yes Yes Yes -Procedure Performed Yes Yes Yes -Type of Procedure Debridement Debridement Debridement -Clinical Debridement Subcutaneous Subcutaneous Subcutaneous -Post Debridement Size (cm) - Length 1.5 1.0 1.0 -Post Debridement Size (cm) - Width 6 4.0 3.7 -Post Debridement Size (cm) - Depth 0.5 0.1 0.1 -Total Square Cm 9.0 4.00 3.70 -Wound/Ulcer Outcome Not Healed Not Healed Not Healed -Ulcer Cleansing Rinsed/ Rinsed/ Rinsed/ Irrigated with Irrigated with Irrigated with Saline Saline Saline -Foul Odor after Cleansing No No No -Bioengineered Tissue No No No -Bleeding Controlled with Pressure Pressure Pressure -Offloading No No No -Treatment Response Procedure Procedure Procedure Tolerated Well Tolerated Well Tolerated Well Pain Scale: 0-10 Numeric Is Patient Pain Free? Yes Yes Yes Wound debrided: #1 Right axilla. Laterality: Right Wound Grade/Stage: 2. Type of Debridement: Excisional debridement Anesthesia Used: 4% Lidocaine Solution Depth: Down to and including healthy tissue, in the subcutaneous layer Percentage of wound debrided: 100 Instrument Used: 5mm curette Tissue Removed: subcutaneous tissue. Severity: Fat Layer Exposed Amount of bleeding with debridement: Mild Bleeding Controlled with: Pressure Patient tolerated procedure well Assessment/Plan Assessment: 1. Right axillary hidradenitis. 2. Nonhealing hidradenitis ulcer right axilla. 3. Smoker. 4. s/p surgical preparation right axilla with excision hidradenitis (54 cm2). Plan: Continue Silver dressing changes to the right axilla. Encourage range of motion exercises right axilla to minimize stiffness. Continue Augmentin for operative cultures that showed Enterococcus faecalis and Anaerobic cocci. He is finishing the Augmentin. Prealbumin from 02/04/19 was 33.5. Encourage nutritional supplementation with protein to help the healing process. Followup 2 weeks. Encouraged patient to stop smoking as it may have deleterious effects on wound healing. Code Visit Wound Center Charges CPT - 49361 ICD-10 - L73.2, L98.492, F17.200
== END 2019-03-28 23:59 ==
LOC: WC 08:00
PROVIDERS: Family Provider Internal Medicine; PCP Internal Medicine; Visit Provider Surgery
DX: L73.2 Hidradenitis suppurativa (principal); F17.210 Nicotine dependence, cigarettes, uncomplicated; T14.8XXA Other injury of unspecified body region, initial encounter; X58.XXXA Exposure to other specified factors, initial encounter
CPT/HCPCS: 11042; 97605

== ENCOUNTER 2019-04-03 08:07 | Outpatient (RCR) | payer OTHER, SELFPAY ==
[2019-03-29 00:55] VITALS: BP 147/101; PULSE 69; RESP 18; TEMP 36.4
[2019-04-03 08:07] VITALS: BP 188/112; PULSE 64; RESP 16; TEMP 36.4; BMI 33.2
--- NOTE | 2019-04-03 14:40 | PCM.WC.PN ---
(1) Open wound of right axillary region Status: Acute Current Visit: Yes Code(s): S41.101A - Unspecified open wound of right upper arm, initial encounter (2) Right axillary hidradenitis Status: Chronic Current Visit: Yes Code(s): L73.2 - Hidradenitis suppurativa (3) Smoker Status: Chronic Current Visit: Yes Code(s): F17.200 - Nicotine dependence, unspecified, uncomplicated Type of Wound Date of Service: 04/03/19 Chief Complaint: Nonhealing hidradenitis ulcer right axilla. History of Wound: Surgery 02/03/19 - Surgical preparation right axilla with excision hidradenitis (54 cm2). Today he is healed. Operative culture - Enterococcus faecalis and Anaerobic cocci. He was treated perioperatively with Doxycycline and it was changed to Augmentin. Prealbumin from 02/04/19 was 33.5. Encourage nutritional supplementation with protein to help the healing process. Today he denies fever. His appetite is good. He has good range of motion right shoulder. Progress of Wound: He is healed today. - Physical Exam Vital Signs Temp Pulse Resp BP 97.6 F L 64 16 188/112 H 04/03/19 08:07 04/03/19 08:07 04/03/19 08:07 04/03/19 08:07 General: Alert, Oriented x3, Cooperative HEENT: Atraumatic Oral: Moist Mucosa Lungs: Normal air movement Cardiovascular: Regular rate Extremities: Capillary Refill Less than 3 Seconds Skin: Ulcer/ Wound - right axillary ulcer is healed today Wound Measurements and Assessment WC - Nurse 1 - General Ulcer Measurement Start: 04/03/19 08:07 Freq: Status: Active Protocol: Activity Type Activity Date Activity User E-Sign Co-Sign Detail Recorded Client Recorded Date Recorded By Document 04/03/19 08:07 MW [id number] 04/03/19 08:16 MW 04/03/19 08:07 Wound Center Nurse 1 [Ulcer Assessment] #1 R Axilla -Combined with other wound No -Current Size (cm) - Length 0.1 -Current Size (cm) - Width 0.1 -Current Size (cm) - Depth 0.1 -Total Square Cm 0.01 -Date of Last Picture (Recall this 04/03/19 field) -Photo Taken Yes -Epithelialization Large 67-100% -Tunneling No -Undermining/Tunneling No -Circular Undermining No -Exudate Amt None Present [Edema Assessment] -Lower Limb Edema Present No WC - Nurse 2 - General Ulcer CM Notes Start: 04/03/19 08:07 Freq: Status: Active Protocol: Activity Type Activity Date Activity User E-Sign Co-Sign Detail Recorded Client Recorded Date Recorded By Document 04/03/19 08:37 JF [id number] 04/03/19 08:38 04/03/19 08:37 Wound Center Nurse 2 [Procedure/Treatment] #1 R Axilla -Correct Patient No -Correct Side, Site, Position No -Correct Procedure No -Procedure Performed No -Post Debridement Size (cm) - Length 0 -Post Debridement Size (cm) - Width 0 -Post Debridement Size (cm) - Depth 0 -Total Square Cm 0 -Wound/Ulcer Outcome Healed- Epithelialized [See Physician Procedure note for Specifics] Pain Scale: 0-10 Numeric [Pain] -Is Patient Pain Free? Yes Musculoskeletal: No Tenderness to Palpation of Joints or Extremities Neurological: Neuro grossly intact Psych/Mental Status: Normal Affect, Appropriate Debridement Note Post-Debridement Measurements/Treatment - Nurse 2 - General Ulcer CM Notes Start: 04/03/19 08:07 Freq: Status: Active Protocol: Activity Type Activity Date Activity User E-Sign Co-Sign Detail Recorded Client Recorded Date Recorded By Document 04/03/19 08:37 JF [id number] 04/03/19 08:38 04/03/19 08:37 Wound Center Nurse 2 #1 R Axilla -Correct Patient No -Correct Side, Site, Position No -Correct Procedure No -Procedure Performed No -Post Debridement Size (cm) - Length 0 -Post Debridement Size (cm) - Width 0 -Post Debridement Size (cm) - Depth 0 -Total Square Cm 0 -Wound/Ulcer Outcome Healed- Epithelialized Pain Scale: 0-10 Numeric Is Patient Pain Free? Yes No debridement was completed today Assessment/Plan Active Problems (Last Reviewed 01/05/19 @ 13:46 by Candy Bradley) Chronic skin ulcer with fat layer exposed (Chronic) nonhealing hidradenitis ulcer right axilla Open wound of right axillary region (Acute) Smoker (Chronic) Hidradenitis (Chronic) right axillary hidradenitis Right axillary hidradenitis (Chronic) Assessment: 1. Right axillary hidradenitis. 2. Nonhealing hidradenitis ulcer right axilla. 3. Smoker. 4. s/p surgical preparation right axilla with excision hidradenitis (54 cm2). Plan: He is healed today. Encourage range of motion exercises right axilla to minimize stiffness. Encouraged to massage the area to help soften the scarring. Completed Augmentin for operative cultures that showed Enterococcus faecalis and Anaerobic cocci. He is finishing the Augmentin. Prealbumin from 02/04/19 was 33.5. Encourage nutritional supplementation with protein to help the healing process. He will return to work on 04/05/2019. Followup as needed. Encouraged patient to stop smoking as it may have deleterious effects on wound healing. Code Visit [id number]
== END 2019-04-28 23:59 ==
LOC: WC 08:07
PROVIDERS: Family Provider Internal Medicine; PCP Internal Medicine; Visit Provider Surgery
DX: Z09 Encounter for follow-up examination after completed treatment for conditions other than malignant neoplasm (principal); L73.2 Hidradenitis suppurativa; F17.200 Nicotine dependence, unspecified, uncomplicated
CPT/HCPCS: 99212; G0463